=== PATIENT | female | born 1960 | race Hispanic/Latino ===

== ENCOUNTER → 2018-05-25 | Day surgery (SDC) | payer OTHER ==
[~2018-05-25] MED LIST: FENTANYL CITRATE/PF 100MCG/2 ML INJ ONE; LIDOCAINE HCL 2% LOCAL INJ 5 ML SDV VIAL INJ ONE; MIDAZOLAM HCL 2 MG/2 ML VIAL ONE; PROPOFOL IV EMULSION 10 MG/ML 50 ML VIAL ONE; ROSUVASTATIN CALCIUM PO; ZETIA10 MG PO
--- OUTSIDE RECORDS SUMMARY | 2018-05-25 05:45 | XMS REPORT | Summary of Care ---
Author Author [facility] Organization [facility] Address Unknown Phone Unavailable Encounter HQ Encntr_alias(NAGI) [id number] Date(s): 08/15/16 - 08/15/16 [facility] [address] [place] [address]- Discharge Disposition: Home or Self Care Attending Physician: Mingo Gonzalez MD Referring Physician: Mingo Gonzalez MD Vital Signs No data available for this section Problem List No data available for this section Allergies, Adverse Reactions, Alerts Substance Reaction Severity Status NKDA Active Medications No data available for this section Results No data available for this section Immunizations No data available for this section Procedures No data available for this section Social History No data available for this section Assessment and Plan No data available for this section
--- OUTSIDE RECORDS SUMMARY | 2018-05-25 05:45 | XMS REPORT | Continuity of Care Document ---
Author Author [facility] Interface Address Unknown Phone Unavailable Problems Problem Status Onset Date Classification Date Reported Comments Source Encounter for screening mammogram for malignant neoplasm of breast 08/20/2017 08/27/2017 [facility] ROUTINE Active 07/20/2017 [facility] SCREENING MAMMOGRAM Active 07/11/2016 [facility] Medications Medication Details Route Status Patient Instructions Ordering Provider Order Date Source Allergies, Adverse Reactions, Alerts Substance Category Reaction Severity Reaction type Status Date Reported Comments Source Immunizations Immunization Date Given Site Status Last Updated Comments Source Results Order Name Results Value Reference Range Date Interpretation Comments Source Breast Mammo Scrn [facility]AH[facility] incl CAD MA Breast Mammo Scrn ZAHRA incl CAD MA BILATERAL DIGITAL SCREENING MAMMOGRAM WITH CAD: 08/18/2017 CLINICAL: /Routine. Current study was evaluated with a Computer Aided Detection (CAD) system. COMPARISON:Comparison is made to exams dated: 08/15/2016 mammogram - [facility], 02/22/2008 mammogram, 01/22/2007 mammogram, and 06/24/2006 mammogram - [facility]. TECHNIQUE: Mammographic views were obtained using digital acquisition. [employer] Version 1.3 was utilized for computer aided detection. FINDINGS: There are scattered fibroglandular densities in both breasts. No significant masses, calcifications, or other findings are seen in either breast. There has been no significant interval change. IMPRESSION: NEGATIVE RECOMMENDATION:There is no mammographic evidence of malignancy. A 1 year screening mammogram is recommended.(08/19/2018) This exam was interpreted at [id number] for [facility]. Mychal nicole/penmoisés:08/18/2017 10:32:14 Private Investigator(s): Sofía Redd [facility] letter sent: BI-RADS 1/2 Mammogram BI-RADS: 1 Negative 08/18/2017 - - Read by: Mychal Silva MD Dictated Date/time: 08/18/17 10:32 Electronically Signed by: Mychal Silva MD 08/18/17 10:32 FINAL REPORT [facility] Breast Mammo Scrn ZAHRA incl CAD MA Breast Mammo Scrn ZAHRA incl CAD MA AMENDMENT: 10/10/2016 Mychal Silva M.D. The patient's prior mammograms dated 02/22/08, 01/22/07 are made available and are compared to the most recent examination. There is no significant change in either breast, allowing for differences in technique/positioning. No mammographic evidence of malignancy. 1 year screening exam is recommended. Amended BI-RADS: 1 Negative letter sent: Comp Normal - BREAST MAMMO SCRN [facility]AHRA INCL CAD MA BILATERAL DIGITAL SCREENING MAMMOGRAM WITH CAD: 08/15/2016 CLINICAL: Other Screening Mammogram. Current study was evaluated with a Computer Aided Detection (CAD) system. Comparison is made to exam dated: 06/24/2006 mammogram - [facility]. There are scattered fibroglandular densities in both breasts. No significant masses, calcifications, or other findings are seen in either breast. There has been no significant interval change. IMPRESSION: NEGATIVE There is no mammographic evidence of malignancy. A 1 year screening mammogram is recommended. Mychal Silva M.D. jt/penrad:09/05/2016 13:09:12 Private Investigator: Ramona Barbosa, [facility] This exam was dictated and interpreted by [id number] for [facility]. letter sent: Normal exam Mammogram BI-RADS: 1 Negative 08/15/2016 - - Read by: Mychal Silva MD Dictated Date/time: 10/10/16 10:47 Electronically Signed by: Mychal Silva MD 10/10/16 10:47 FINAL REPORT - - Read by: Mychal Silva MD Dictated Date/time: 09/05/16 13:09 Electronically Signed by: Mychal Silva MD 09/05/16 13:09 FINAL REPORT [facility] Vital Signs Vital Sign Value Date Comments Source Encounters Location Location Details Encounter Type Encounter Number Reason For Visit Attending Provider ADM Date DC Date Status Source [facility] Outpatient [id number] Mingo Garzongado 08/15/2016 08/16/2016 [facility] Outpatient [id number] Israel Betancurlauri 08/18/2017 08/19/2017 [facility] Procedures Procedure Code Date Perfomer Comments Source
--- OUTSIDE RECORDS SUMMARY | 2018-05-25 05:45 | XMS REPORT | Summary of Care ---
Author Author [facility] Organization [facility] Address Unknown Phone Unavailable Encounter HQ Encntr_alias(FIN) [id number] Date(s): 08/18/17 - 08/18/17 [facility] [address] [place] [address]- Encounter Diagnosis Encounter for screening mammogram for malignant neoplasm of breast (Final) - Discharge Disposition: Home or Self Care Attending Physician: Israel Santoro MD Referring Physician: Israel Santoro MD Vital Signs No data available for [...]
--- OUTSIDE RECORDS SUMMARY | 2018-05-25 05:45 | XMS REPORT | Summary of Care ---
Author Author [facility] Organization [facility] Address Unknown Phone Unavailable Encounter HQ Encntr_alias(FIN) [id number] Date(s): 08/18/17 - 08/18/17 [facility] [address] [place] [address]- Encounter Diagnosis Encounter for screening mammogram for malignant neoplasm of breast (Final) - 08/19/17 Discharge Disposition: Home or Self Care Attending [...]
[2018-05-25 12:10] VITALS: BP 136/88
== END | disposition home or self-care (01) ==
LOC: OR 05:43
PROVIDERS: ATTEND Internal Medicine Gastroenterology
DX: K29.50 Unspecified chronic gastritis without bleeding (principal); Z12.11 Encounter for screening for malignant neoplasm of colon; K64.8 Other hemorrhoids; E78.5 Hyperlipidemia, unspecified; R30.0 Dysuria; R00.2 Palpitations; I71.4 Abdominal aortic aneurysm, without rupture; Z01.810 Encounter for preprocedural cardiovascular examination
CPT/HCPCS: 43239; 45378; 93005; J2001; J2250; J2704

== ENCOUNTER → 2020-06-28 | Day surgery (SDC) | payer OTHER ==
[~2020-06-28] MED LIST changes: +METOCLOPRAMIDE HCL 10 MG/2ML VIAL ONE; +OMEPRAZOLE40 MG PO; +PANTOPRAZOLE 40 MG 10ML VIAL ONE; +PROPOFOL IV EMULSION 10 MG/ML 20 ML VIAL ONE; -PROPOFOL IV EMULSION 10 MG/ML 50 ML VIAL ONE
[2020-06-28 08:56] VITALS: BP 106/70
== END | disposition home or self-care (01) ==
LOC: OR 05:46
PROVIDERS: ATTEND Internal Medicine Gastroenterology
DX: K29.70 Gastritis, unspecified, without bleeding (principal); K20.90 Esophagitis, unspecified without bleeding; K21.9 Gastro-esophageal reflux disease without esophagitis; K22.8 Other specified diseases of esophagus; N39.0 Urinary tract infection, site not specified; Z01.810 Encounter for preprocedural cardiovascular examination; Z01.812 Encounter for preprocedural laboratory examination; Z20.822 Contact with and (suspected) exposure to COVID-19; Z68.38 Body mass index [BMI] 38.0-38.9, adult; Z80.0 Family history of malignant neoplasm of digestive organs
CPT/HCPCS: 43239; 93005; C9113; J2001; J2250; J2704; J2765; J3010; U0002